=== PATIENT | female | born 1975 | race Caucasian/White ===

== ENCOUNTER 2020-09-03 11:47 | Emergency (ER) | payer SELFPAY ==
--- NOTE | ~2020-09-03 | CT_ITS ---
EXAMINATION: CT abdomen pelvis wo con DATE: 09/03/2020 13:35 INDICATION: Right flank pain TECHNIQUE: Computed tomography (CT) of the abdomen and pelvis was performed without intravenous contr ast. Automated exposure control and iterative reconstruction technique were employed. Exam dose: 126 0.81 mGy-cm total exam DLP. COMPARISON: None. FINDINGS: The lung bases are clear. Normal heart size. No pericardial or pleural effusion. Status post cholecystectomy. No hepatic, splenic, pancreatic, and adrenal or renal space-occupying ma ss lesion is evident on this limited noncontrast examination. No bile duct or pancreatic duct dilatation. No urinary tract calculus or hydroureteronephrosis. The uterus, adnexal areas and urinary bladder are unremarkable. Normal caliber and minimal calcification of the abdominal aorta. No intraperitoneal or retroperitonea l or pelvic mass lesion or adenopathy or ascites is evident. There is mild diverticulosis is no evidence of diverticulitis of the colon. No bowel obstruction, bow el wall thickening, pneumatosis or intraperitoneal free air is evident. Diffuse idiopathic skeletal hyperostosis of the thoracic spine. Transitional lumbosacral vertebra. No suspicious osteolytic or osteoblastic lesions. IMPRESSION: Status post cholecystectomy Mild colonic diverticulosis; no CT evidence of diverticulitis No urinary tract calculi or hydroureteronephrosis Reviewed, dictated and finalized at [facility]. Reviewed, dictated and finalized at location [facility].
[2020-09-03 11:49] VITALS: BP 163/102; PULSE 93; RESP 20; TEMP 36.3; O2SAT 98
[2020-09-03 12:20] LABS: Add Urine Microscopic? YES; Appearance Urine Cloudy (Clear); Bilirubin Urine Negative (Negative); Blood Urine 3+ (Negative); Color Urine Yellow (Yellow); Glucose Urine UA Negative (Negative); Ketones Urine Negative (Negative); Leukocyte Esterase Ur Negative LEU/UL (Negative); Mucus Urine Rare /lpf; Nitrate Urine Negative (Negative); Protein Urine 1+ mg/dL (Negative); Specific Grav Ur 1.009 (1.001-1.035); Squamous Epithelial Cell Urine Many /hpf (Few); Urobilinogen Urine Negative mg/dL (<2.0); WBC Urine 0-3 /hpf
[2020-09-03 14:16] VITALS: BP 148/72; PULSE 78; RESP 18; O2SAT 99
--- NOTE | 2020-09-03 14:52 | ED.GENADULT ---
HPI - General Adult General Chief complaint: Extremity Injury, Upper Stated complaint: right side back pain worse with movement Time Seen by Provider: 09/03/20 11:50 Source: patient Mode of arrival: ambulatory Limitations: no limitations History of Present Illness HPI narrative: 44-year-old with no major medical problems here with complaints of right flank pain on and off for past 1 week and also complains of right arm pain which is been ongoing for few days. 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 She denies any injuries. No previous history of back problems denies any urinary symptoms. Location: back and upper extremity (right) Pain Consistency: constant Related Data Allergies Allergy/AdvReac Type Severity Reaction Status Date / Time vancomycin Allergy Mild FACIAL Verified 04/27/11 19:40 REDNESS POSS. SWELLING Penicillins Allergy rash Verified 04/27/11 19:40 Review of Systems Review of Systems: All systems reviewed & are unremarkable except as noted in HPI and below Constitutional: Constitutional: Reports no additional constitutional complaints Eyes: Eyes: Reports no additional eye complaints ENT: Reports system reviewed and no additional complaints, except as documented Cardiovascular: Cardiovascular: Reports no additional cardiovascular complaints Respiratory: Respiratory: Reports no additional respiratory complaints Gastrointestinal: Gastrointestinal: Reports no additional gastrointestinal complaints Musculoskeletal: Musculoskeletal: Reports as per HPI Neurologic: Reports system reviewed and no additional complaints, except as documented PMFSH Social History Social History Gender identity (if verbalized by the patient): Female Exam Narrative: Exam Narrative: GENERAL: Well-appearing, well-nourished, and in no acute distress. HEAD: Normocephalic, atraumatic. EYES: PERRLA and EOMI. NECK: Supple. CHEST: Clear to auscultation. No respiratory distress. HEART: Regular rate and rhythm. No murmur heard. Normal peripheral pulses. ABDOMEN: Soft, nontender, nondistended, normal active bowel sounds. Pain in the right flank area EXTREMITIES: Normal range of motion. No edema. SKIN: Warm, dry, no rash. NEURO: No focal deficits. Alert and oriented x3. PSYCH: Normal mood and affect. Course Course Emergency Course: Patient denies being on. However she has quite a few RBCs in the urine we will scan her back. Her CT of her abdomen and pelvis without contrast showed no evidence of renal stones or renal mass. This time her work-up seems to be unremarkable except for hematuria. Advised to follow-up with the primary doctor and meanwhile will control her pain with Ultram. Vital Signs Vital signs: Vital Signs Temperature 36.3 C L 09/03/20 11:49 Pulse Rate 93 09/03/20 11:49 Respiratory Rate 20 09/03/20 11:49 Blood Pressure 163/102 H 09/03/20 11:49 Pulse Oximetry 98 09/03/20 11:49 Temperature 36.3 C L 09/03/20 11:49 Pulse Rate 78 09/03/20 14:16 Respiratory Rate 18 09/03/20 14:16 Blood Pressure 148/72 H 09/03/20 14:16 Pulse Oximetry 99 09/03/20 14:16 Medical Decision Making Vital Signs Vital Signs: Vital Signs Temperature 36.3 C L 09/03/20 11:49 Pulse Rate 93 09/03/20 11:49 Respiratory Rate 20 09/03/20 11:49 Blood Pressure 163/102 H 09/03/20 11:49 Pulse Oximetry 98 09/03/20 11:49 Temperature 36.3 C L 09/03/20 11:49 Pulse Rate 78 09/03/20 14:16 Respiratory Rate 18 09/03/20 14:16 Blood Pressure 148/72 H 09/03/20 14:16 Pulse Oximetry 99 09/03/20 14:16 Lab Data Labs: Lab Results 09/03/20 Range/Units 12:04 Urine Color Yellow (Yellow) Urine Appearance Cloudy H (Clear) Urine pH 6.0 (5.0-9.0) Ur Specific [place] 1.009 (1.001-1.035) Urine Protein 1+ H (Negative) mg/dL Urine Glucose (UA) Negative (Negative)
== END 2020-09-03 15:20 | disposition home or self-care (01) ==
PROVIDERS: Emergency Provider Family Medicine
DX: M54.89 Other dorsalgia (principal); R31.9 Hematuria, unspecified; K57.90 Diverticulosis of intestine, part unspecified, without perforation or abscess without bleeding
CPT/HCPCS: 74176; 81001; 99284

== ENCOUNTER 2021-02-14 11:50 | Emergency (ER) | payer OTHER, SELFPAY ==
[2021-02-14 11:53] VITALS: BP 168/98; PULSE 90; RESP 16; TEMP 35.2; O2SAT 97
--- NOTE | 2021-02-14 13:02 | PC.NURSE ---
Strep swab sent to lab.
--- NOTE | 2021-02-14 13:04 | ED.URI ---
HPI - URI/Sore Throat General Chief Complaint: Upper Respiratory Infection Stated Complaint: Needs return to work note Time Seen by Provider: 02/14/21 12:25 Source: patient Mode of arrival: ambulatory Limitations: no limitations History of Present Illness HPI Narrative: This is a 45-year-old female that presents the emergency department for cold symptoms x2 days. Reports cough, sore throat, and congestion. She has not received a Covid vaccination. Denies fever or shortness of breath. Related Data Home Medications Medication Instructions Recorded Confirmed No Home Medications 02/14/21 02/14/21 Allergies Allergy/AdvReac Type Severity Reaction Status Date / Time vancomycin Allergy Mild FACIAL Verified 02/14/21 12:16 REDNESS POSS. SWELLING Penicillins Allergy rash Verified 02/14/21 12:16 Review of Systems Review of Systems: CONSTITUTIONAL: Denies fever ENT: Reports congestion, sore throat RESPIRATORY: Reports cough. Denies dyspnea. All systems reviewed & are unremarkable except as noted in HPI and below PMFSH Past Medical History Medical History (Updated 02/14/21 @ 14:04 by Nilsa Bush PA-C) History of hypertension Social History Social History (Updated 02/14/21 @ 14:02 by Nilsa Bush PA-C) Substance use: never Gender identity (if verbalized by the patient): Female Exam Narrative: GENERAL: Well-appearing, well-nourished, and in no acute distress. HEAD: Normocephalic, atraumatic. EYES: EOMI. ENT: Nares clear, no rhinorrhea or epistaxis. Mucous membranes moist. Oropharynx with mild tonsillar hypertrophy, no exudate or other lesions. Bilateral TMs pearly howard non-bulging NECK: Supple. No adenopathy or masses. CHEST: Clear to auscultation. No respiratory distress. No wheezes rales or rhonchi HEART: Regular rate and rhythm. No murmur heard. Normal peripheral pulses. EXTREMITIES: Normal range of motion. No edema. SKIN: Warm, dry, no rash. NEURO: No focal deficits. Alert and oriented x3. PSYCH: Normal mood and affect Course Vital Signs Vital signs: Vital Signs Temperature 95.3 F L 02/14/21 11:53 Pulse Rate 90 02/14/21 11:53 Respiratory Rate 16 02/14/21 11:53 Blood Pressure 168/98 H 02/14/21 11:53 Pulse Oximetry 97 02/14/21 11:53 Temperature 95.3 F L 02/14/21 11:53 Pulse Rate 90 02/14/21 11:53 Respiratory Rate 16 02/14/21 11:53 Blood Pressure 168/98 H 02/14/21 11:53 Pulse Oximetry 97 02/14/21 11:53 MDM - URI/Sore Throat MDM Narrative Medical decision making narrative: Patient presents to the emergency department for cold symptoms present over the last couple of days. She is afebrile and nontoxic-appearing. Oxygen saturation is normal on room air. Lungs are clear on exam. Strep screen is negative. SARS-CoV-2 is pending. Patient was instructed on care of viral infection. She is to follow-up with primary care doctor. She was given warnings to return to the ER Lab Data Attestation: I reviewed the patient's lab results. Labs: Lab Results 02/14/21 Range/Units 13:27 SARS-CoV-2 RNA (RT-PCR) Pending Strep Screen Presumptive Negative *(Reference Range: Negative)* Critical Care Time Critical Care Time Critical Care Time: No Discharge Plan Discharge Clinical Impression: Person under investigation for severe acute respiratory syndrome coronavirus 2 (SARS-CoV-2) infection, Acute viral syndrome Patient Disposition: Home, Self-Care Condition: Stable Instructions: COVID-19 (Coronavirus Disease 2019) (ED) Additional Instructions: Return to the emergency department for worsening symptoms, or any other concerns Remain well-hydrated, get plenty of rest. Take Tylenol or Motrin [id number] for pain as needed. Flonase for nasal congestion. Zyrtec for runny nose. Lozenges or Chloraseptic spray for sore throat. You tested today for coronavirus. It is import
[2021-02-14 14:17] VITALS: BP 166/88; PULSE 86; RESP 16; O2SAT 98
[2021-02-15 22:41] LABS: SARS-CoV-2 RNA PCR Positive
== END 2021-02-14 14:18 | disposition home or self-care (01) ==
PROVIDERS: Physician Assistant; Emergency Provider Emergency Medicine
DX: U07.1 COVID-19 (principal); I10 Essential (primary) hypertension
CPT/HCPCS: 87081; 87880; 99283; C9803; U0003; U0005

== ENCOUNTER 2023-01-15 15:38 | Emergency (ER) | payer SELFPAY ==
--- NOTE | ~2023-01-15 | XR_ITS ---
EXAMINATION: XR chest 1V portable INDICATION: Shortness of breath and cough TECHNIQUE: Portable AP chest at 1627 hours COMPARISON: 03/02/2004 FINDINGS: The lungs are free of acute opacities. No pleural effusion or pneumothorax. The cardiomedia stinal silhouette is normal. IMPRESSION: 1. No acute cardiopulmonary abnormality. Reviewed, dictated and finalized at location [facility].
[2023-01-15 15:45] VITALS: BP 160/83; PULSE 83; RESP 16; TEMP 36.3; O2SAT 96
--- NOTE | 2023-01-15 16:07 | ECG_ITS ---
Measurements Intervals [place] Rate: 72 P: 3 FL: 173 QRS: 52 QRSD: 105 T: 83 QT: 401 QTc: 440 Interpretive Statements SINUS RHYTHM NONSPECIFIC T-WAVE ABNORMALITY BORDERLINE ECG NO PREVIOUS ECG AVAILABLE FOR COMPARISON Electronically Signed On 01-16-2023 15:00:02 CDT by Kojo Garcia M.D.
[2023-01-15 16:55] LABS: Basophils Absolute Auto 0.1 K/mm3 (0.0-0.1); Basophils Percent Auto 0.7 % (0.2-1.2); Eosinophils Absolute Auto 0.3 K/mm3 (0-0.3); Eosinophils Percent Auto 2.7 % (0-4.4); Hematocrit 46.9 % (37.0-47.0); Hemoglobin 15.2 g/dL (12.0-15.0); Immature Granulocyte Absolute 0.03 K/mm3 (0.00-0.031); Immature Granulocyte Percent A 0.3 % (0-0.5); Lymphocytes Absolute Auto 1.86 K/mm3 (0.9-3.2); Lymphocytes Percent Auto 17.1 % (18.3-44.2); Mean Corpuscular HGB Conc 32.4 g/dl (32-36); Mean Corpuscular Hemoglobin 29.8 pg (26-34); Mean Platelet Volume 10.1 fl (7.4-10.4); Monocytes Absolute Auto 0.9 K/mm3 (0.1-0.6); Monocytes Percent Auto 8.1 % (2.6-8.5); Neutrophils Absolute Auto 7.7 K/mm3 (1.3-6.7); Neutrophils Percent Auto 71.1 % (45.5-73.1); Platelet Count Result 286 k/mm3 (150-375); Red Cell Distribution Width 13.2 % (11.5-14.5); White Blood Count 10.9 K/mm3 (4.5-10.0)
[2023-01-15 17:01] LABS: Alanine Aminotransferase 41 U/L (6-35); Albumin Level 4.1 g/dL (3.5-5.1); Alkaline Phosphatase 84 U/L (38-126); Anion Gap 6 mmol/L (8-16); Aspartate Amino Transferase 34 U/L (14-36); Bilirubin,Total 0.3 mg/dL (0.2-1.3); Blood Urea Nitrogen 9 mg/dL (7-17); Calcium 8.7 mg/dL (8.4-10.2); Carbon Dioxide 29 mmol/L (22-30); Chloride 105 mmol/L (98-107); Estimated CRCL calculation 124 ml/min; Estimated Glomerular Filt Rate > 60; Glucose 86 mg/dL (65-110); Potassium 3.8 mmol/L (3.4-5.0); Sodium 140 mmol/L (137-145)
[2023-01-15 19:15] LABS: Influenza A QL RT-PCR Negative (Negative); Influenza B QL RT-PCR Negative (Negative); RSV RNA, RT-PCR Negative (Negative); SARS-CoV-2 RNA PCR Negative (Negative)
--- NOTE | 2023-01-15 19:16 | ED.GENADULT ---
HPI - General Adult General Chief complaint: Shortness of Breath/Dyspnea Stated complaint: cough/ dyspnea History of Present Illness HPI narrative: 47-year-old female presented the emergency department for evaluation of generalized illness with cough and congestion. Patient states she was not feeling well yesterday but then had worsening symptoms today. Patient does complain of a sore throat cough and congestion. Patient denies any chest pain or shortness of breath. Related Data Home Medications Medication Instructions Recorded Confirmed No Home Medications 02/14/21 02/14/21 Allergies Allergy/AdvReac Type Severity Reaction Status Date / Time vancomycin Allergy Mild FACIAL Verified 01/15/23 19:19 REDNESS POSS. SWELLING Penicillins Allergy rash Verified 01/15/23 19:19 Review of Systems Review of Systems: All systems reviewed & are unremarkable except as noted in HPI and below PMFSH Past Medical History Medical History (Updated 01/16/23 @ 00:06 by Jovana Alvarez) History of hypertension Social History Social History (Updated 02/14/21 @ 14:02 by Nilsa Bush PA-C) Substance use: never Gender identity (if verbalized by the patient): Female Exam Narrative: APPEARANCE: Well appearing, no pain, no distress, well-nourished. HEAD: normocephalic, atraumatic. EYES: PERRLA/EOMI, conjunctivae clear. NOSE: Normal no drainage THROAT: Pharynx clear, no exudate. NECK: Supple. No adenopathy, no masses. RESPIRATORY: Airway patent, respirations nonlabored. Clear to auscultation bilaterally, no rales, rhonchi, wheezing. CARDIOVASCULAR: Regular rate and rhythm without murmurs rubs or gallops. ABDOMINAL: Soft, nontender, nondistended, normal bowel sounds MUSCULOSKELETAL: Moves all extremities. Strength/ROM intact, No edema, No calf tenderness. NEURO: Alert. Cranial nerves II through XII intact. Grossly intact SKIN: Warm, dry. Normal Color Course Course Emergency Course: 47-year-old female presented the ED for evaluation of increased sore throat and generalized illness. Patient was afebrile with no leukocytosis. Patient had no significant abnormalities on her CMP. Chest x-ray showed no acute cardiopulmonary abnormality. Patient was negative for COVID influenza and RSV. At time of signout strep is pending.. Vital Signs Vital signs: Vital Signs Temperature 97.3 F L 01/15/23 15:45 Pulse Rate 83 01/15/23 15:45 Respiratory Rate 16 01/15/23 15:45 Blood Pressure 160/83 H 01/15/23 15:45 Pulse Oximetry 96 01/15/23 15:45 Temperature 97.3 F L 01/15/23 15:45 Pulse Rate 86 01/15/23 22:26 Respiratory Rate 23 H 01/15/23 22:26 Blood Pressure 141/105 H 01/15/23 22:26 Pulse Oximetry 96 01/15/23 22:26 Medical Decision Making Vital Signs Vital Signs: Vital Signs Temperature 97.3 F L 01/15/23 15:45 Pulse Rate 83 01/15/23 15:45 Respiratory Rate 16 01/15/23 15:45 Blood Pressure 160/83 H 01/15/23 15:45 Pulse Oximetry 96 01/15/23 15:45 Temperature 97.3 F L 01/15/23 15:45 Pulse Rate 86 01/15/23 22:26 Respiratory Rate 23 H 01/15/23 22:26 Blood Pressure 141/105 H 01/15/23 22:26 Pulse Oximetry 96 01/15/23 22:26 Lab Data 01/15/23 16:37 01/15/23 16:37 Labs: Lab Results 01/15/23 01/15/23 01/15/23 Range/Units 16:37 18:02 18:48 WBC 10.9 H (4.5-10.0) K/mm3 RBC 5.10 (4.2-5.4) M/mm3 Hgb 15.2 H (12.0-15.0) g/dL Hct 46.9 (37.0-47.0) % MCV 92.0 (80-100) fl MCH 29.8 (26-34) pg MCHC 32.4 (32-36) g/dl RDW 13.2 (11.5-14.5) % Plt Count 286 (150-375) k/mm3 MPV 10.1 (7.4-10.4) fl Immature Gran % (Auto) 0.3 (0-0.5) % Neut % (Auto) 71.1 (45.5-73.1) % Lymph % (Auto) 17.1 L (18.3-44.2) % [place] % (Auto) 8.1 (2.6-8.5) % Eos % (Auto) 2.7 (0-4.4) % Baso % (Auto) 0.7 (0.2-1.2) % Lymph # (Auto) 1.86 (0.9-3.2) K/mm3 [place] #
[2023-01-15] MEDS: KETOROLAC 15 MG/ML VIAL (*BKC) IV PUSH (19:18)
[2023-01-15 19:20] VITALS: BP 144/108; PULSE 88; RESP 15; O2SAT 97
[2023-01-15 19:33] LABS: Strep Group A RT-PCR NOT DETECTED (Negative)
--- NOTE | 2023-01-15 22:15 | ED.GENADULT ---
HPI - General Adult General Chief complaint: Shortness of Breath/Dyspnea Stated complaint: cough/ dyspnea Related Data Home Medications Medication Instructions Recorded Confirmed No Home Medications 02/14/21 02/14/21 Allergies Allergy/AdvReac Type Severity Reaction Status Date / Time vancomycin Allergy Mild FACIAL Verified 01/15/23 19:19 REDNESS POSS. SWELLING Penicillins Allergy rash Verified 01/15/23 19:19 [facility] Past Medical History Medical History (Updated 01/16/23 @ 00:06 by Jovana Alvarez) History of hypertension Social History Social History (Updated 02/14/21 @ 14:02 by Nilsa Bush PA-C) Substance use: never Gender identity (if verbalized by the patient): Female Course Course Emergency Course: ZYCH 2215: Signed out to me pending strep. Strep negative. Patient discharged. Vital Signs Vital signs: Vital Signs Temperature 97.3 F L 01/15/23 15:45 Pulse Rate 83 01/15/23 15:45 Respiratory Rate 16 01/15/23 15:45 Blood Pressure 160/83 H 01/15/23 15:45 Pulse Oximetry 96 01/15/23 15:45 Temperature 97.3 F L 01/15/23 15:45 Pulse Rate 86 01/15/23 22:26 Respiratory Rate 23 H 01/15/23 22:26 Blood Pressure 141/105 H 01/15/23 22:26 Pulse Oximetry 96 01/15/23 22:26 Medical Decision Making Vital Signs Vital Signs: Vital Signs Temperature 97.3 F L 01/15/23 15:45 Pulse Rate 83 01/15/23 15:45 Respiratory Rate 16 01/15/23 15:45 Blood Pressure 160/83 H 01/15/23 15:45 Pulse Oximetry 96 01/15/23 15:45 Temperature 97.3 F L 01/15/23 15:45 Pulse Rate 86 01/15/23 22:26 Respiratory Rate 23 H 01/15/23 22:26 Blood Pressure 141/105 H 01/15/23 22:26 Pulse Oximetry 96 01/15/23 22:26 Lab Data 01/15/23 16:37 01/15/23 16:37 Labs: Lab Results 01/15/23 01/15/23 01/15/23 Range/Units 16:37 18:02 18:48 WBC 10.9 H (4.5-10.0) K/mm3 RBC 5.10 (4.2-5.4) M/mm3 Hgb 15.2 H (12.0-15.0) g/dL Hct 46.9 (37.0-47.0) % MCV 92.0 (80-100) fl MCH 29.8 (26-34) pg MCHC 32.4 (32-36) g/dl RDW 13.2 (11.5-14.5) % Plt Count 286 (150-375) k/mm3 MPV 10.1 (7.4-10.4) fl Immature Gran % (Auto) 0.3 (0-0.5) % Neut % (Auto) 71.1 (45.5-73.1) % Lymph % (Auto) 17.1 L (18.3-44.2) % [place] % (Auto) 8.1 (2.6-8.5) % Eos % (Auto) 2.7 (0-4.4) % Baso % (Auto) 0.7 (0.2-1.2) % Lymph # (Auto) 1.86 (0.9-3.2) K/mm3 [place] # (Auto) 0.9 H (0.1-0.6) K/mm3 Eos # (Auto) 0.3 (0-0.3) K/mm3 Baso # (Auto) 0.1 (0.0-0.1) K/mm3 Abs Immat Gran (auto) 0.03 (0.00-0.031) K/mm3 Absolute Neuts (auto) 7.7 H (1.3-6.7) K/mm3 Absolute Nucleated RBC 0.0 (0.0-0.012) K/mm3 Nucleated RBC % 0.0 (0.0-0.2) % Sodium 140 (137-145) mmol/L Potassium 3.8 (3.4-5.0) mmol/L Chloride 105 (98-107) mmol/L Carbon Dioxide 29 (22-30) mmol/L Anion Gap 6 L (8-16) mmol/L BUN 9 (7-17) mg/dL Creatinine 0.60 L (0.7-1.0) mg/dL Estim Creat Clear Calc 124 ml/min Estimated GFR > 60 (59 - ) Glucose 86 (65-110) mg/dL Calcium 8.7 (8.4-10.2) mg/dL Total Bilirubin 0.3 (0.2-1.3) mg/dL AST 34 (14-36) U/L ALT 41 H (6-35) U/L Alkaline Phosphatase 84 (38-126) U/L Total Protein 7.0 (6.3-8.2) g/dL Albumin 4.1 (3.5-5.1) g/dL Influenza A (RT-PCR) Negative (Negative) Influenza B (RT-PCR) Negative (Negative) RSV (RT-PCR) Negative (Negative) SARS-CoV-2 RNA (RT-PCR) Negative (Negative) Group A Strep (PCR) Not detected (Negative) Discharge Plan Discharge Clinical Impression: Acute sore throat, Cough Patient Disposition: Home, Self-Care Condition: Stable Instructions: Antibiotic Form, Pharyngitis (ED), Acute Cough (ED) Additional Instructions: Tylenol and ibuprofen for fever and for body aches. Drink plenty of fluids. Have close follow-up wi
[2023-01-15 22:26] VITALS: BP 141/105; PULSE 86; RESP 23; O2SAT 96
== END 2023-01-15 22:26 | disposition home or self-care (01) ==
PROVIDERS: Emergency Medicine; Emergency Provider Emergency Medicine
DX: R05.9 Cough, unspecified (principal); J02.9 Acute pharyngitis, unspecified; Z20.822 Contact with and (suspected) exposure to COVID-19; I10 Essential (primary) hypertension; R94.31 Abnormal electrocardiogram [ECG] [EKG]
CPT/HCPCS: 36415; 71045; 80053; 85025; 87637; 87651; 93005; 96374; 99284; J1885

== ENCOUNTER 2024-09-20 20:07 | Emergency (ER) | payer SELFPAY ==
[2024-09-20 20:10] VITALS: BP 175/120; PULSE 89; RESP 20; TEMP 36.9; O2SAT 96
--- OUTSIDE RECORDS SUMMARY | 2024-09-20 20:10 | XMS_ITS | Clinical Summary ---
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 10 tablet 01/05/2021 Active Social History Tobacco Use Types Packs/Day Years Used Date Smoking Tobacco: Every Day Cigarettes Smokeless Tobacco: Never Alcohol Use Standard Drinks/Week Comments Never 0 (1 standard drink = 0.6 oz pur e alcohol) AUDIT-C Answer Date Recorded Q1: How often do you have a drink containing alc ohol? Never 02/08/2020 Average Number of Drinks Not on file 020 Frequency of Binge Drinking Not on file 12/2019 Comments No Sex and Gender Information Value Date Recorded Sex Assigned at Not on file Legal Sex Female 7:58 PM CDT Gender Identity Not on file Sexual Orientation Not on file Last Filed Vital Signs Vital Sign Reading Time Taken Comments Blood Pressure 156/127 01/05/2021 9:53 AM CDT Pulse 94 01/05/2021 9:53 AM CDT Temperature 36.6 C (97.8 F) 01/05/2021 9:53 AM CDT Respiratory Rate 17 01/05/2021 9:53 AM CDT Oxygen Saturation 96% 01/05/2021 9:53 AM CDT Inhaled Oxygen Concentration - - Weight 131.5 kg (290 lb) 01/05/2021 9:53 AM CDT Height 160 cm (5' 3 ) 01/05/2021 9:53 AM CDT Body Mass Index 51.37 01/05/2021 9:53 AM CDT Plan of Treatment Health Maintenance Due Date Last Done Comments Cervical Cancer Screening Pa p Smear (Age 30 to 64) Every 3 Years 1973 Colorectal Cancer Screening Colonoscopy (10 Years) 1973 Annual Physical 1976 Hepatitis C 11/15/1991 DTaP, Tdap and Td Vaccines ( 1 - Tdap) 1992 Hepatitis B Vaccines (1 of 3 - 19+ 3-dose series) 1992 Cervical Cancer Screening Pa p with HPV Testing (Age 30 to 64) Every 5 Years 11/15/2003 Cervical Cancer Screening with HPV 11/15/2003 Mammogram Screening 2013 Pneumococcal Vaccine: 50+ Ye ars (1 of 1 - PCV) 11/15/2023 Zoster Vaccines (1 of 2) 11/15/2023 COVID-19 Vaccine ( - 2023-2 5 season) 2024 Meningococcal B Vaccine Aged Out No l onger eligible based on patient's age to complete this topic Meningococcal Vaccine Aged Out No elaine luba eligible based on patient's age to complete this topic RSV Immunizations Under 20 Months Aged Out No longer eligible based on patient's age to complete this topic Care Teams Branch Sales And Service Representative Relationship Specialty Start Date End Date None, Provider, PCP - General 02/08/20
[2024-09-20 20:50] LABS: Basophils Absolute Auto 0.1 K/mm3 (0.0-0.1); Basophils Percent Auto 0.5 % (0.2-1.2); Eosinophils Absolute Auto 0.4 K/mm3 (0-0.3); Hematocrit 47.1 % (37.0-47.0); Hemoglobin 15.3 g/dL (12.0-15.0); Immature Granulocyte Absolute 0.04 K/mm3 (0.00-0.031); Immature Granulocyte Percent A 0.3 % (0-0.5); Lymphocytes Percent Auto 24.1 % (18.3-44.2); Mean Corpuscular HGB Conc 32.5 g/dl (32-36); Mean Corpuscular Hemoglobin 29.7 pg (26-34); Mean Corpuscular Volume 91.3 fl (80-100); Mean Platelet Volume 9.9 fl (7.4-10.4); Monocytes Absolute Auto 0.9 K/mm3 (0.1-0.6); Monocytes Percent Auto 7.2 % (2.6-8.5); Neutrophils Absolute Auto 7.8 K/mm3 (1.3-6.7); Neutrophils Percent Auto 64.9 % (45.5-73.1); Platelet Count Result 287 k/mm3 (150-375); Red Blood Count 5.16 M/mm3 (4.2-5.4); Red Cell Distribution Width 13.3 % (11.5-14.5)
[2024-09-20 21:03] LABS: Alanine Aminotransferase 33 U/L (6-35); Albumin Level 3.9 g/dL (3.5-5.1); Alkaline Phosphatase 75 U/L (38-126); Anion Gap 7 mmol/L (4-12); Aspartate Amino Transferase 24 U/L (14-36); Bilirubin,Total 0.3 mg/dL (0.2-1.3); Blood Urea Nitrogen 9 mg/dL (7-17); CRP 0.8 mg/dL (<1.0); Calcium 9.2 mg/dL (8.4-10.2); Carbon Dioxide 29 mmol/L (22-30); Chloride 103 mmol/L (98-107); Estimated CRCL calculation 114 ml/min; Estimated Glomerular Filt Rate > 60; Glucose 109 mg/dL (65-110); Potassium 4.3 mmol/L (3.4-5.0); Sodium 139 mmol/L (137-145)
[2024-09-20 21:14] LABS: Erythrocyte Sedimentation Rate 11 mm/hr (0-20)
--- OUTSIDE RECORDS SUMMARY | 2024-09-20 21:24 | XMS_ITS | Clinical Summary ---
Author Organization [facility] Address [facility] [place] [address] Care Team Providers Care Farmer [employer] Name Role Phone None, Provider MD Primary [...] age to complete this topic Care Teams Farmer [employer] Relationship Specialty Start Date End Date None, Provider, PCP - General 02/08/20
--- NOTE | 2024-09-20 21:43 | ED_ITS ---
HPI - General Adult General Chief complaint: Extremity Injury, Lower Stated complaint: edema to leg, uri Time Seen by Provider: 09/20/24 21:15 History of Present Illness HPI narrative: Patient is a 48-year-old female who presents emergency department this evening complaining of right lower leg swelling. States that she has noticed it for a while but has noticed that it has worsened. Denies any history of blood clots. Denies any recent falls or trauma to the right lower extremity. Denies any history of CHF. Denies any recent illness, fevers or chills. No additional symptoms or concerns at this time. Related Data Home Medications ?Medication ?Instructions ?Recorded ?Confirmed ?Last Taken ?Type No Home Medications 02/14/21 02/14/21 Unknown History Allergies Allergy/AdvReac Type Severity Reaction Status Date / Time vancomycin Allergy Mild FACIAL Verified 09/20/24 20:16 REDNESS POSS. SWELLING Penicillins Allergy rash Verified 09/20/24 20:16 Review of Systems 2 Review of Systems: All systems are reviewed and are negative unless stated otherwise in the HPI. [facility] Past Medical History Medical History History of hypertension Social History Social History Substance use: never Gender identity (if verbalized by the patient): Female Exam 2 Narrative: General: Alert, awake, afebrile, in no acute distress. HEENT: PERRL, no rhinorrhea, no post nasal drip, oropharynx clear. Neck: Trachea midline, no JVD, no lymphadenopathy. Cardiovascular: Regular rate and rhythm, no murmurs, rubs or gallops, no peripheral edema. Respiratory: Clear to auscultation bilaterally, no tachypnea, no wheezing, no rhonchi, no rubs, no respiratory distress. Abdomen: Soft, nontender, nondistended, no rebound, no guarding, no peritoneal signs. Musculoskeletal: Right lower extremity swelling, no evidence of cellulitis or infection. Skin: No rashes or petechia, no signs of infection. Psychiatric: Alert and oriented, normal behavior and judgment for situation. Neurological: Alert and oriented to person, place, and time. Follows all commands. No focal deficits, speech is clear and fluent. Course Vital Signs Vital signs: Vital Signs Temperature 98.5 F 09/20/24 20:10 Pulse Rate 89 09/20/24 20:10 Respiratory Rate 20 09/20/24 20:10 Blood Pressure 175/120 H 09/20/24 20:10 Pulse Oximetry 96 09/20/24 20:10 Oxygen Delivery Room Air 09/20/24 20:10 Temperature 98.5 F 09/20/24 20:10 Pulse Rate 89 09/20/24 20:10 Respiratory Rate 20 09/20/24 20:10 Blood Pressure 175/120 H 09/20/24 20:10 Pulse Oximetry 96 09/20/24 20:10 Oxygen Delivery Room Air 09/20/24 20:10 Medical Decision Making MDM Narrative Medical decision making narrative: The patient was evaluated by myself in the emergency department. History is obtained from patient who is an independent historian and physical exam was performed. External medical records were reviewed at this time. IV was established and pertinent tests were ordered. Laboratory results obtained revealing mild leukocytosis of 12 otherwise unremarkable. Inflammatory markers within normal limits. Differential diagnosis considerations include cellulitis, venous insufficiency, DVT. Comorbidities impacting this visit include none. I have evaluated and discussed social determinants of health with the patient that could potentially impact subsequent diagnosis and treatment plans. On repeat assessment of the patient, reevaluation revealed that the patient is doing well and is in no acute distress. Patient symptoms have remained stable since she arrived to our emergency department. Repeat vital signs were all reviewed and noted to be stable. Differential diagnosis and treatment plan were discussed with the patient at bedside. Patient agrees with discussion and after shared medical decision making agrees with discharge. All questions were answered to the patient's satisfaction. Patient will follow up with her PCP in 3-5 days. Patient was scheduled for an ultrasound at 7:30 a.m. and patient was instructed that she will need to come to our imaging department in the morning to have a right lower extremity ultrasound to rule out a DVT. Patient was provided with strict return precautions and instructed to return to the emergency department if any new or worsening symptoms develop. The patient was discharged in stable condition. Vital Signs Vital Signs: Vital Signs Temperature 98.5 F 09/20/24 20:10 Pulse Rate 89 09/20/24 20:10 Respiratory Rate 20 09/20/24 20:10 Blood Pressure 175/120 H 09/20/24 20:10 Pulse Oximetry 96 09/20/24 20:10 Oxygen Delivery Room Air 09/20/24 20:10 Temperature 98.5 F 09/20/24 20:10 Pulse Rate 89 09/20/24 20:10 Respiratory Rate 20 09/20/24 20:10 Blood Pressure 175/120 H 09/20/24 20:10 Pulse Oximetry 96 09/20/24 20:10 Oxygen Delivery Room Air 09/20/24 20:10 Lab Data 09/20/24 20:45 09/20/24 20:45 Labs: Lab Results 09/20/24 Range/Units 20:45 WBC 12.0 H (4.5-10.0) K/mm3 RBC 5.16 (4.2-5.4) M/mm3 Hgb 15.3 H (12.0-15.0) g/dL Hct 47.1 H (37.0-47.0) % MCV 91.3 (80-100) fl MCH 29.7 (26-34) pg MCHC 32.5 (32-36) g/dl RDW 13.3 (11.5-14.5) % Plt Count 287 (150-375) k/mm3 MPV 9.9 (7.4-10.4) fl Immature Gran % (Auto) 0.3 (0-0.5) % Neut % (Auto) 64.9 (45.5-73.1) % Lymph % (Auto) 24.1 (18.3-44.2) % [place] % (Auto) 7.2 (2.6-8.5) % Eos % (Auto) 3.0 (0-4.4) % Baso % (Auto) 0.5 (0.2-1.2) % Lymph # (Auto) 2.90 (0.9-3.2) K/mm3 [place] # (Auto) 0.9 H (0.1-0.6) K/mm3 Eos # (Auto) 0.4 H (0-0.3) K/mm3 Baso # (Auto) 0.1 (0.0-0.1) K/mm3 Abs Immat Gran (auto) 0.04 H (0.00-0.031) K/mm3 Absolute Neuts (auto) 7.8 H (1.3-6.7) K/mm3 Absolute Nucleated RBC 0.000 (0.0-0.012) K/mm3 Nucleated RBC % 0.0 (0.0-0.2) % ESR 11 (0-20) mm/hr Sodium 139 (137-145) mmol/L Potassium 4.3 (3.4-5.0) mmol/L Chloride 103 (98-107) mmol/L Carbon Dioxide 29 (22-30) mmol/L Anion Gap 7 (4-12) mmol/L BUN 9 (7-17) mg/dL Creatinine 0.69 L (0.7-1.0) mg/dL Estim Creat Clear Calc 114 ml/min Estimated GFR > 60 (59 - ) Glucose 109 (65-110) mg/dL Calcium 9.2 (8.4-10.2) mg/dL Magnesium 2.0 (1.6-2.3) mg/dL Total Bilirubin 0.3 (0.2-1.3) mg/dL AST 24 (14-36) U/L ALT 33 (6-35) U/L Alkaline Phosphatase 75 (38-126) U/L C-Reactive Protein 0.8 (<1.0) mg/dL Total Protein 7.0 (6.3-8.2) g/dL Albumin 3.9 (3.5-5.1) g/dL Discharge Plan Discharge Clinical Impression: Localized swelling of right lower extremity Patient Disposition: Home Condition: Stable Instructions: Antibiotic Form, Leg Edema (ED) Additional Instructions: Please come to the hospital to our outpatient imaging center to have your right lower extremity ultrasound performed at 7:00 a.m. tomorrow morning to rule out a blood clot. Follow-up with your family doctor within the next 3-5 days and return to the ED if any new or worsening symptoms develop. Patient Language: Cambodian Prescriptions: No Action No Home Medications Other Ambulatory Orders: US venous doppler LE RT (Routine) Timeframe: 20240921 Location: Determined by Patient Ordered By: Jhonatan Jenkins Follow-up/Referrals: PHYSICIAN,TEST DESIGNER [Primary Care Provider] - Armando Sellers MD [Physician] - 3 Days Time of Disposition: 21:46
== END 2024-09-20 21:54 | disposition home or self-care (01) ==
PROVIDERS: Emergency Provider Emergency Medicine
DX: R22.41 Localized swelling, mass and lump, right lower limb (principal); I10 Essential (primary) hypertension
CPT/HCPCS: 36415; 80053; 83735; 85025; 85652; 86140; 99283

== ENCOUNTER 2024-09-21 08:38 | Outpatient (CLI) | payer SELFPAY ==
--- NOTE | ~2024-09-21 | US_ITS ---
RIGHT LOWER EXTREMITY VENOUS ULTRASOUND Ordering provider: Jhonatan Jenkins MD History: . R22.41 - Localized swelling, mass and lump, right lower limb . Comparison: None. FINDINGS: --COMMON FEMORAL: Patent and free of thrombus. Normal compressibility, phasic flow and augmentation. --PROXIMAL SUPERFICIAL FEMORAL: Patent and free of thrombus. Normal compressibility, phasic flow and augmentation. --DISTAL SUPERFICIAL FEMORAL: Patent and free of thrombus. Normal compressibility, phasic flow and au gmentation. --POPLITEAL: Patent and free of thrombus. Normal compressibility, phasic flow and augmentation. --POSTERIOR TIBIAL: Patent and free of thrombus. Normal compressibility, phasic flow and augmentation . IMPRESSION: Negative right lower extremity venous US. No deep vein thrombosis. Reviewed, dictated and finalized at location A.
--- OUTSIDE RECORDS SUMMARY | 2024-09-21 09:23 | XMS_ITS | Clinical Summary ---
Author Organization [facility] Address [facility] [place] [address] Care Team Providers Care Studio Camera Operator Name Role Phone None, Provider MD Primary [...] age to complete this topic Care Teams Studio Camera Operator Relationship Specialty Start Date End Date None, Provider, PCP - General 02/08/20
== END 2024-09-21 08:39 | disposition home or self-care (01) ==
PROVIDERS: PCP Emergency Medicine; Visit Provider Emergency Medicine
DX: R22.41 Localized swelling, mass and lump, right lower limb (principal)
CPT/HCPCS: 93971

== ENCOUNTER 2024-09-21 12:16 | Emergency (ER) | payer SELFPAY ==
--- NOTE | ~2024-09-21 | XR_ITS ---
XR tibia fibula RT 2V Ordering provider: Shona Leigh APRN History: . R LE pain, swelling . Comparison: None. FINDINGS: BONES: No acute fracture or dislocation. JOINT SPACES: Normal. SOFT TISSUES: Normal. Calcaneal spur. Ossification of the insertion of the tendo Achilles. IMPRESSION: No acute osseous abnormality right leg. Reviewed, dictated and finalized at location A.
--- NOTE | ~2024-09-21 | XR_ITS ---
XR knee RT min 4V Ordering provider: Shona Leigh APRN History: . NON TRAUMA RT KNEE/LOWER LEG SWELLING . Comparison: None. FINDINGS: BONES: No acute fracture or dislocation. JOINT SPACES: Normal. SOFT TISSUES: Normal. IMPRESSION: No acute osseous abnormality right knee. Reviewed, dictated and finalized at location A.
[2024-09-21 12:48] VITALS: BP 156/105; PULSE 102; RESP 18; TEMP 36.8; O2SAT 98
--- NOTE | 2024-09-21 12:52 | ED.LOWEXIN ---
HPI - Extremity Injury (Lower) General Chief Complaint: Extremity Injury, Lower <Shona Leigh APRN - Last Filed: 09/21/24 12:52> Stated Complaint: Right leg swelling-US neg DVT-sent by Dr Sellers <Shona Leigh APRN - Last Filed: 09/21/24 12:52> Time Seen by Provider: 09/21/24 13:50 <Shona Leigh APRN - Last Filed: 09/21/24 12:52> Focused HPI: Patient is a 48-year-old female who presents to the ER with complaints of right lower extremity swelling pain. States that she has noticed it for a while but has noticed that it has worsened. Denies any history of blood clots. Denies any recent falls or trauma to the right lower extremity. Denies any history of CHF. Denies any recent illness, fevers or chills. No additional symptoms or concerns at this time. General: Alert, awake, afebrile, in no acute distress. HEENT: PERRL, no rhinorrhea, no post nasal drip, oropharynx clear. Neck: Trachea midline, no JVD, no lymphadenopathy. Cardiovascular: Regular rate and rhythm, no murmurs, rubs or gallops, no peripheral edema. Respiratory: Clear to auscultation bilaterally, no tachypnea, no wheezing, no rhonchi, no rubs, no respiratory distress. Abdomen: Soft, nontender, nondistended, no rebound, no guarding, no peritoneal signs. Musculoskeletal: Right lower extremity swelling, no evidence of cellulitis or infection. Skin: No rashes or petechia, no signs of infection. Psychiatric: Alert and oriented, normal behavior and judgment for situation. Neurological: Alert and oriented to person, place, and time. Follows all commands. No focal deficits, speech is clear and fluent. Patient screened in triage and initial orders placed.? ?Additional care and disposition to be based upon?diagnostic testing and treatment. <Shona Leigh APRN - Last Filed: 09/21/24 12:52> History of Present Illness HPI Narrative: Agree with the HPI above. Patient states that she called the on-call physician as she does not have a PCP Cole referred either to the PCP's office or the ED and she chose the emergency department. No change from evaluation yesterday according to the patient. <Amor Moreno MD - Last Filed: 09/21/24 14:55> Related Data Home Medications: Home Medications ?Medication ?Instructions ?Recorded ?Confirmed ?Last Taken ?Type No Home Medications 02/14/21 02/14/21 Unknown History <Shona Leigh APRN - Last Filed: 09/21/24 12:52> Allergies/Adverse Reactions: Allergies Allergy/AdvReac Type Severity Reaction Status Date / Time vancomycin Allergy Mild FACIAL Verified 09/21/24 12:56 REDNESS POSS. SWELLING Penicillins Allergy rash Verified 09/21/24 12:56 <Shona Leigh APRN - Last Filed: 09/21/24 12:52> Review of Systems Review of Systems: As reviewed above in HPI <Amor Moreno MD - Last Filed: 09/21/24 14:55> [facility] Past Medical History Medical History: Medical History History of hypertension <Shona Leigh APRN - Last Filed: 09/21/24 12:52> Social History Social History: Social History Substance use: never Gender identity (if verbalized by the patient): Female <Shona Liegh APRN - Last Filed: 09/21/24 12:52> Exam Narrative: General: Alert, awake, afebrile, in no acute distress. HEENT: PERRL, no rhinorrhea, no post nasal drip, oropharynx clear. Neck: Trachea midline, no JVD, no lymphadenopathy. Cardiovascular: Regular rate and rhythm, no murmurs, rubs or gallops, no peripheral edema. 2+ pedal pulses, warm extremities. Respiratory: Clear to auscultation bilaterally, no tachypnea, no wheezing, no rhonchi, no rubs, no respiratory distress. Abdomen: Soft, nontender, nondistended, no rebound, no guarding, no peritoneal signs. Musculoskeletal: Right lower extremity swelling, no evidence of cellulitis or infection. Skin: No rashes or petechiae. No signs of infection. Psoriatic plaques in her knees. Psychiatric: Alert and oriented, normal behavior and judgment for situation. Neurological: Alert and oriented to person, place, and time. Follows all commands. No focal deficits, speech is clear and fluent. <Amor Moreno MD - Last Filed: 09/21/24 14:55> Course Vital Signs Vital signs: Vital Signs Temperature 36.8 C 09/21/24 12:48 Pulse Rate 102 H 09/21/24 12:48 Respiratory Rate 18 09/21/24 12:48 Blood Pressure 156/105 H 09/21/24 12:48 Pulse Oximetry 98 09/21/24 12:48 Oxygen Delivery Room Air 09/21/24 12:48 Temperature 36.8 C 09/21/24 12:48 Pulse Rate 102 H 09/21/24 12:48 Respiratory Rate 18 09/21/24 12:48 Blood Pressure 156/105 H 09/21/24 12:48 Pulse Oximetry 98 09/21/24 12:48 Oxygen Delivery Room Air 09/21/24 12:48 <Shona Leigh, TOOL ROOM SUPERVISOR - Last Filed: 09/21/24 12:52> Vital Signs Temperature 36.8 C 09/21/24 12:48 Pulse Rate 102 H 09/21/24 12:48 Respiratory Rate 18 09/21/24 12:48 Blood Pressure 156/105 H 09/21/24 12:48 Pulse Oximetry 98 09/21/24 12:48 Oxygen Delivery Room Air 09/21/24 12:48 Temperature 36.8 C 09/21/24 12:48 Pulse Rate 102 H 09/21/24 12:48 Respiratory Rate 18 09/21/24 12:48 Blood Pressure 156/105 H 09/21/24 12:48 Pulse Oximetry 98 09/21/24 12:48 Oxygen Delivery Room Air 09/21/24 12:48 <Amor Moreno MD - Last Filed: 09/21/24 14:55> MDM - Extremity Injury (Lower) MDM Narrative Medical decision making narrative: 48-year-old female presenting with right lower extremity swelling. Symptoms going on for last 2 days. On examination she does have right lower extremity swelling but no signs of infection. 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 2+ pedal pulses, warm extremities. Right leg swelling compared to the left, no signs of phlegmasia, no signs of significant venous insufficiency. She had an evaluation yesterday and ordered an ultrasound outpatient this morning. This ultrasound was done I independently reviewed it. It was negative for deep venous thrombosis. Patent veins. Workup was ordered here including x-rays and inflammatory markers. Patient is not any pain right now ambulatory in the emergency department. She states she does not have a PCP and when she called the provider she was referred to yesterday she said they instructed her to go the ER or to their office and she chose the ER. Workup shows a leukocytosis of 12.1 consistent with her level yesterday, no acute elevations or changes. No anemia. Normal platelets. Electrolytes unremarkable. Normal renal function. Negative lactic acid, negative BNP, negative CRP, normal LFTs. ESR was negative yesterday. DVT ultrasound shows patent vessels, no DVT. X-rays of the knee and tib-fib showed no acute injury or fracture. Patient is safe and stable for discharge home with PCP follow-up. She was encouraged to call the provider that was going to see her this morning. Patient's questions were answered she was safe for discharge. Encouraged to take Tylenol and ibuprofen for any swelling or pain in the meantime. <Amor Moreno MD - Last Filed: 09/21/24 14:55> Medical Records Attestation: I reviewed the patient's medical records. <Amor Moreno MD - Last Filed: 09/21/24 14:55> Lab Data Attestation: I reviewed the patient's lab results. <Amor Moreno MD - Last Filed: 09/21/24 14:55> Result diagrams: 09/21/24 13:32 09/21/24 13:32 <Shona Leigh APRN - Last Filed: 09/21/24 12:52> Labs: Lab Results 09/21/24 Range/Units 13:32 WBC 12.1 H (4.5-10.0) K/mm3 RBC 5.40 (4.2-5.4) M/mm3 Hgb 16.0 H (12.0-15.0) g/dL Hct 49.1 H (37.0-47.0) % MCV 90.9 (80-100) fl MCH 29.6 (26-34) pg MCHC 32.6 (32-36) g/dl RDW 13.3 (11.5-14.5) % Plt Count 304 (150-375) k/mm3 MPV 10.0 (7.4-10.4) fl Immature Gran % (Auto) 0.3 (0-0.5) % Neut % (Auto) 67.6 (45.5-73.1) % Lymph % (Auto) 20.2 (18.3-44.2) % [place] % (Auto) 8.9 H (2.6-8.5) % Eos % (Auto) 2.3 (0-4.4) % Baso % (Auto) 0.7 (0.2-1.2) % Lymph # (Auto) 2.45 (0.9-3.2) K/mm3 [place] # (Auto) 1.1 H (0.1-0.6) K/mm3 Eos # (Auto) 0.3 (0-0.3) K/mm3 Baso # (Auto) 0.1 (0.0-0.1) K/mm3 Abs Immat Gran (auto) 0.04 H (0.00-0.031) K/mm3 Absolute Neuts (auto) 8.2 H (1.3-6.7) K/mm3 Absolute Nucleated RBC 0.000 (0.0-0.012) K/mm3 Nucleated RBC % 0.0 (0.0-0.2) % ESR Pending Sodium 139 (137-145) mmol/L Potassium 3.8 (3.4-5.0) mmol/L Chloride 102 (98-107) mmol/L Carbon Dioxide 33 H (22-30) mmol/L Anion Gap 4 (4-12) mmol/L BUN 9 (7-17) mg/dL Creatinine 0.74 (0.7-1.0) mg/dL Estim Creat Clear Calc 106 ml/min Estimated GFR > 60 (59 - ) Glucose 71 (65-110) mg/dL Lactic Acid 0.8 (0.7-2.0) mmol/L Calcium 9.2 (8.4-10.2) mg/dL Total Bilirubin 0.3 (0.2-1.3) mg/dL AST 20 (14-36) U/L ALT 30 (6-35) U/L Alkaline Phosphatase 78 (38-126) U/L C-Reactive Protein 0.8 (<1.0) mg/dL NT-Pro-B Natriuret Pep 27 (19.9-100) pg/mL Total Protein 7.0 (6.3-8.2) g/dL Albumin 4.1 (3.5-5.1) g/dL <Shona Leigh, TOOL ROOM SUPERVISOR - Last Filed: 09/21/24 12:52> Lab Results 09/21/24 Range/Units 13:32 WBC 12.1 H (4.5-10.0) K/mm3 RBC 5.40 (4.2-5.4) M/mm3 Hgb 16.0 H (12.0-15.0) g/dL Hct 49.1 H (37.0-47.0) % MCV 90.9 (80-100) fl MCH 29.6 (26-34) pg MCHC 32.6 (32-36) g/dl RDW 13.3 (11.5-14.5) % Plt Count 304 (150-375) k/mm3 MPV 10.0 (7.4-10.4) fl Immature Gran % (Auto) 0.3 (0-0.5) % Neut % (Auto) 67.6 (45.5-73.1) % Lymph % (Auto) 20.2 (18.3-44.2) % [place] % (Auto) 8.9 H (2.6-8.5) % Eos % (Auto) 2.3 (0-4.4) % Baso % (Auto) 0.7 (0.2-1.2) % Lymph # (Auto) 2.45 (0.9-3.2) K/mm3 [place] # (Auto) 1.1 H (0.1-0.6) K/mm3 Eos # (Auto) 0.3 (0-0.3) K/mm3 Baso # (Auto) 0.1 (0.0-0.1) K/mm3 Abs Immat Gran (auto) 0.04 H (0.00-0.031) K/mm3 Absolute Neuts (auto) 8.2 H (1.3-6.7) K/mm3 Absolute Nucleated RBC 0.000 (0.0-0.012) K/mm3 Nucleated RBC % 0.0 (0.0-0.2) % ESR Pending Sodium 139 (137-145) mmol/L Potassium 3.8 (3.4-5.0) mmol/L Chloride 102 (98-107) mmol/L Carbon Dioxide 33 H (22-30) mmol/L Anion Gap 4 (4-12) mmol/L BUN 9 (7-17) mg/dL Creatinine 0.74 (0.7-1.0) mg/dL Estim Creat Clear Calc 106 ml/min Estimated GFR > 60 (59 - ) Glucose 71 (65-110) mg/dL Lactic Acid 0.8 (0.7-2.0) mmol/L Calcium 9.2 (8.4-10.2) mg/dL Total Bilirubin 0.3 (0.2-1.3) mg/dL AST 20 (14-36) U/L ALT 30 (6-35) U/L Alkaline Phosphatase 78 (38-126) U/L C-Reactive Protein 0.8 (<1.0) mg/dL NT-Pro-B Natriuret Pep 27 (19.9-100) pg/mL Total Protein 7.0 (6.3-8.2) g/dL Albumin 4.1 (3.5-5.1) g/dL <Amor Moreno MD - Last Filed: 09/21/24 14:55> Imaging Data Attestation: I personally reviewed and interpreted this imaging study as follows: <Amor Moreno MD - Last Filed: 09/21/24 14:55> My impression: Impressions Knee X-Ray 09/21/24 13:29 IMPRESSION: No acute osseous abnormality right knee. Tibia/Fibula X-Ray 09/21/24 13:31 IMPRESSION: No acute osseous abnormality right leg. <Amor Moreno MD - Last Filed: 09/21/24 14:55> Discharge Plan Discharge Clinical Impression: Swelling of right lower extremity <Shona Leigh APRN - Last Filed: 09/21/24 12:52> Patient Disposition: Home <Shona Leigh APRN - Last Filed: 09/21/24 12:52> Condition: Stable <Shona Leigh APRN - Last Filed: 09/21/24 12:52> Instructions: Antibiotic Form <Shona Leigh APRN - Last Filed: 09/21/24 12:52> Additional Instructions: Your x-rays and DVT study were negative. Her laboratory studies are all reassuring. Call the primary provider that you are in contact with this morning for an outpatient follow-up and further evaluation studies. Return with any new or emergent concerns such as foot discoloration, weakness, neuropathy, worsening swelling or any other new concerns. You take Tylenol and ibuprofen for any swelling or pain in the meantime. <Shona Leigh APRN - Last Filed: 09/21/24 12:52> Patient Language: Kyrgyz <Shona Leigh APRN - Last Filed: 09/21/24 12:52> Prescriptions: No Action No Home Medications <Shona Leigh APRN - Last Filed: 09/21/24 12:52> Follow-up/Referrals: Armando Sellers MD [Primary Care Provider] - 3 Days (RLE swelling, negative ED workup) <Shona Leigh APRN - Last Filed: 09/21/24 12:52> Time of Disposition: 14:54 <Shona Leigh APRN - Last Filed: 09/21/24 12:52> 14:54 <Amor Moreno MD - Last Filed: 09/21/24 14:55>
--- NOTE | 2024-09-21 13:10 | PC.NURSE ---
Pt. to x-ray.
[2024-09-21 13:40] LABS: Basophils Absolute Auto 0.1 K/mm3 (0.0-0.1); Basophils Percent Auto 0.7 % (0.2-1.2); Eosinophils Absolute Auto 0.3 K/mm3 (0-0.3); Eosinophils Percent Auto 2.3 % (0-4.4); Hematocrit 49.1 % (37.0-47.0); Immature Granulocyte Absolute 0.04 K/mm3 (0.00-0.031); Immature Granulocyte Percent A 0.3 % (0-0.5); Lymphocytes Absolute Auto 2.45 K/mm3 (0.9-3.2); Lymphocytes Percent Auto 20.2 % (18.3-44.2); Mean Corpuscular HGB Conc 32.6 g/dl (32-36); Mean Corpuscular Hemoglobin 29.6 pg (26-34); Mean Corpuscular Volume 90.9 fl (80-100); Monocytes Absolute Auto 1.1 K/mm3 (0.1-0.6); Monocytes Percent Auto 8.9 % (2.6-8.5); Neutrophils Absolute Auto 8.2 K/mm3 (1.3-6.7); Neutrophils Percent Auto 67.6 % (45.5-73.1); Platelet Count Result 304 k/mm3 (150-375); Red Cell Distribution Width 13.3 % (11.5-14.5); White Blood Count 12.1 K/mm3 (4.5-10.0)
--- OUTSIDE RECORDS SUMMARY | 2024-09-21 13:45 | XMS_ITS | Clinical Summary ---
Author Organization [facility] Address [facility] [place] [address] Care Team Providers Care Apartment Manager Name Role Phone None, Provider MD Primary [...] age to complete this topic Care Teams Apartment Manager Relationship Specialty Start Date End Date None, Provider, PCP - General 02/08/20
[2024-09-21 13:53] LABS: Lactic Acid Reflex 0.8 mmol/L (0.7-2.0)
[2024-09-21 13:55] LABS: Alanine Aminotransferase 30 U/L (6-35); Albumin Level 4.1 g/dL (3.5-5.1); Alkaline Phosphatase 78 U/L (38-126); Anion Gap 4 mmol/L (4-12); Aspartate Amino Transferase 20 U/L (14-36); Bilirubin,Total 0.3 mg/dL (0.2-1.3); Blood Urea Nitrogen 9 mg/dL (7-17); CRP 0.8 mg/dL (<1.0); Calcium 9.2 mg/dL (8.4-10.2); Carbon Dioxide 33 mmol/L (22-30); Chloride 102 mmol/L (98-107); Estimated CRCL calculation 106 ml/min; Estimated Glomerular Filt Rate > 60; Glucose 71 mg/dL (65-110); Potassium 3.8 mmol/L (3.4-5.0); Sodium 139 mmol/L (137-145)
[2024-09-21 14:02] LABS: NT Pro B Type Natriuretic Pept 27 pg/mL (19.9-100)
[2024-09-21 14:58] LABS: Erythrocyte Sedimentation Rate 2 mm/hr (0-20)
[2024-09-21 15:04] VITALS: BP 172/112; PULSE 83; RESP 16; O2SAT 95
--- OUTSIDE RECORDS SUMMARY | 2024-09-21 15:57 | XMS_ITS | Clinical Summary ---
Author Organization [facility] Address [facility] [place] [address] Care Team Providers Care E Commerce Manager Name Role Phone None, Provider MD [...] age to complete this topic Care Teams E Commerce Manager Relationship Specialty Start Date End Date None, Provider, PCP - General 02/08/20
== END 2024-09-21 15:13 | disposition home or self-care (01) ==
PROVIDERS: Registered Nurse; Emergency Provider Student in an Organized Health Care Education/Training Program; PCP Emergency Medicine
DX: R22.41 Localized swelling, mass and lump, right lower limb (principal); I10 Essential (primary) hypertension
CPT/HCPCS: 36415; 73564; 73590; 80053; 83605; 83880; 85025; 85652; 86140; 99284